=== PATIENT | male | born 1980 | race Caucasian/White ===

== ENCOUNTER 2020-03-26 09:52 | Emergency (ER) | payer OTHER ==
[~2020-03-26] VITALS: Ht 188 cm; Wt 124.5 kg
[2020-03-26 10:43] LABS: EOS # 0.4 (0.04-0.40); EOS % 4.5 % (0.0-4.0); HEMATOCRIT 38.1 % (42.0-52.0); LYMPH# 1.4 (1.50-4.00); MEAN CELL VOLUME 75 fl (78-100); MEAN CORPUSCULAR HEMOGLOBIN 22 pg (27-31); MEAN CORPUSCULAR HGB CONC 29 g/dL (33-37); MEAN PLATELET VOLUME 8.5 fl (7.4-10.4); MONO # 0.6 (0.20-0.80); NEU # 5.3 (1.40-6.50); PLATELET COUNT 384 K/mm3 (130-400); RED BLOOD COUNT 5.07 M/mm3 (4.20-5.60); WHITE BLOOD COUNT 7.8 K/mm3 (4.8-10.8)
[2020-03-26 10:45] LABS: URINE APPEARANCE CLEAR; URINE BILIRUBIN NEGATIVE (NEGATIVE); URINE BLOOD NEGATIVE (NEGATIVE); URINE COLOR YELLOW; URINE GLUCOSE NEGATIVE (NEGATIVE); URINE KETONE NEGATIVE (NEGATIVE); URINE LEUKOCYTE ESTERASE NEGATIVE (NEGATIVE); URINE NITRATE NEGATIVE (NEGATIVE); URINE PROTEIN(semi-quant) NEGATIVE (NEGATIVE); URINE UROBILINOGEN NORMAL (NORMAL); URINE WBC 0 /hpf (0-3)
[2020-03-26 10:51] LABS: ALBUMIN 4.2 g/dL (3.5-5.0); POTASSIUM 4.2 mmol/L (3.5-5.1)
[2020-03-26 10:52] LABS: SODIUM 141 mmol/L (136-145)
[2020-03-26 10:53] LABS: CALCIUM 8.7 mg/dL (8.3-10.5)
[2020-03-26 10:54] LABS: GLUCOSE 89 mg/dL (75-110); TOTAL PROTEIN 6.7 g/dL (6.4-8.3)
[2020-03-26 10:55] LABS: CARBON DIOXIDE 22 mmol/L (22-29)
[2020-03-26 10:56] LABS: TOTAL BILIRUBIN 0.2 mg/dL (0.2-1.2)
[2020-03-26 10:59] LABS: AST-SGOT 21 U/L (5-34)
[2020-03-26 11:00] LABS: ALT/SGPT 39 U/L (0-55)
[2020-03-26 11:03] LABS: D-DIMER 0.52 mg/L FEU (0.15-0.50)
[2020-03-26 11:10] LABS: TROPONIN-I < 0.03 ng/mL (<0.030)
[2020-03-26] MEDS ORDERED: PREDNISONE20 M1 PO ×3 (15:11→16:04)
[2020-03-26 15:50] VITALS: BP 121/54
[2020-03-28] MEDS ORDERED: CLONAZEPAM2 MG PO (02:52)
[2020-03-28] MEDS ORDERED: ESCITALOPRAM20 MG PO (02:54)
[2020-03-28] MEDS ORDERED: PROAIR HFA0.09 MG/AC IH (02:56)
[2020-03-28] MEDS ORDERED: REMERON15 MG PO (02:57)
[2020-03-28] MEDS ORDERED: ROXICODONE 55 MG/TAB PO (02:59)
[2020-03-28] MEDS ORDERED: ONDANSETRON ODT8 MG PO (06:28)
== END 2020-03-26 15:51 | disposition home or self-care (01) ==
LOC: ED 09:52
PROVIDERS: Nurse Practitioner Primary Care
DX: R09.1 Pleurisy (principal); Z20.828 Contact with and (suspected) exposure to other viral communicable diseases
CPT/HCPCS: J1170; J1200; J1885; J2270; J2405; J2550; J2930; J7030; Q9967

== ENCOUNTER 2020-04-01 01:14 | Emergency (ER) | payer OTHER ==
[~2020-04-01 01:14] MED LIST: CLONAZEPAM2 MG PO; ESCITALOPRAM20 MG PO; ONDANSETRON ODT8 MG PO; PREDNISONE20 M1 PO; PROAIR HFA0.09 MG/AC IH; REMERON15 MG PO; ROXICODONE 55 MG/TAB PO
[2020-04-01 01:20] VITALS: BP 151/91
[2020-04-01] MEDS ORDERED: PROMETHEGAN25 MG RC (01:26)
[2020-04-01 02:04] LABS: URINE APPEARANCE CLEAR; URINE BILIRUBIN NEGATIVE (NEGATIVE); URINE BLOOD NEGATIVE (NEGATIVE); URINE COLOR YELLOW; URINE GLUCOSE NEGATIVE (NEGATIVE); URINE KETONE NEGATIVE (NEGATIVE); URINE LEUKOCYTE ESTERASE NEGATIVE (NEGATIVE); URINE MUCUS PRESENT (NOT PRESENT); URINE NITRATE NEGATIVE (NEGATIVE); URINE PROTEIN(semi-quant) NEGATIVE (NEGATIVE); URINE UROBILINOGEN NORMAL (NORMAL); URINE WBC 0-1 /hpf (0-3)
[2020-04-01 02:22] LABS: EOS # 0.4 (0.04-0.40); EOS % 4.9 % (0.0-4.0); HEMATOCRIT 37.2 % (42.0-52.0); HEMOGLOBIN 11.1 g/dL (13.5-18.0); LYMPH# 1.7 (1.50-4.00); MEAN CELL VOLUME 73 fl (78-100); MEAN CORPUSCULAR HEMOGLOBIN 22 pg (27-31); MEAN CORPUSCULAR HGB CONC 30 g/dL (33-37); MEAN PLATELET VOLUME 8.4 fl (7.4-10.4); MONO # 0.6 (0.20-0.80); NEU # 4.4 (1.40-6.50); PLATELET COUNT 417 K/mm3 (130-400); RED BLOOD COUNT 5.08 M/mm3 (4.20-5.60); RED CELL DISTRIBUTION WIDTH 17.8 % (11.5-14.5); WHITE BLOOD COUNT 7.2 K/mm3 (4.8-10.8)
[2020-04-01 02:28] LABS: POTASSIUM 3.8 mmol/L (3.5-5.1); SODIUM 141 mmol/L (136-145)
[2020-04-01 02:29] LABS: CALCIUM 8.4 mg/dL (8.3-10.5)
[2020-04-01 02:30] LABS: GLUCOSE 119 mg/dL (75-110); TOTAL PROTEIN 6.2 g/dL (6.4-8.3)
[2020-04-01 02:31] LABS: CARBON DIOXIDE 22 mmol/L (22-29)
[2020-04-01 02:32] LABS: TOTAL BILIRUBIN 0.2 mg/dL (0.2-1.2)
[2020-04-01 02:33] LABS: ALCOHOL IN-HOUSE < 10 mg/dL (<10)
[2020-04-01 02:35] LABS: AST-SGOT 14 U/L (5-34)
[2020-04-01 02:37] LABS: ALT/SGPT 25 U/L (0-55)
== END 2020-04-01 04:34 | disposition home or self-care (01) ==
LOC: ED 01:14
PROVIDERS: Physician Assistant
DX: G43.909 Migraine, unspecified, not intractable, without status migrainosus (principal); G47.00 Insomnia, unspecified; Z88.6 Allergy status to analgesic agent; Z88.8 Allergy status to other drugs, medicaments and biological substances
CPT/HCPCS: J1200; J1885; J2405; J3360; J7030

== ENCOUNTER 2020-04-28 03:30 | Emergency (ER) | payer OTHER ==
[~2020-04-28] VITALS: Ht 188 cm; Wt 132.1 kg
[~2020-04-28 03:30] MED LIST changes: +PROMETHEGAN25 MG RC
[2020-04-28] MEDS ORDERED: NORCO 325 MG-51 TA1 PO (03:41)
[2020-04-28 05:00] VITALS: BP 114/80
[2020-04-28 05:09] LABS: EOS # 0.1 (0.04-0.40); EOS % 1.8 % (0.0-4.0); HEMATOCRIT 37.9 % (42.0-52.0); HEMOGLOBIN 11.2 g/dL (13.5-18.0); MEAN CELL VOLUME 74 fl (78-100); MEAN CORPUSCULAR HEMOGLOBIN 22 pg (27-31); MEAN CORPUSCULAR HGB CONC 30 g/dL (33-37); MEAN PLATELET VOLUME 8.3 fl (7.4-10.4); MONO # 0.4 (0.20-0.80); NEU # 2.4 (1.40-6.50); PLATELET COUNT 343 K/mm3 (130-400); RED BLOOD COUNT 5.14 M/mm3 (4.20-5.60); RED CELL DISTRIBUTION WIDTH 18.5 % (11.5-14.5); WHITE BLOOD COUNT 3.8 K/mm3 (4.8-10.8)
[2020-04-28 05:15] LABS: ALBUMIN 3.9 g/dL (3.5-5.0)
[2020-04-28 05:16] LABS: POTASSIUM 3.9 mmol/L (3.5-5.1)
[2020-04-28 05:17] LABS: CALCIUM 8.3 mg/dL (8.3-10.5)
[2020-04-28 05:18] LABS: TOTAL PROTEIN 6.4 g/dL (6.4-8.3)
[2020-04-28 05:20] LABS: TOTAL BILIRUBIN 0.2 mg/dL (0.2-1.2)
[2020-04-28 05:28] LABS: D-DIMER 0.48 mg/L FEU (0.15-0.50)
[2020-04-28 06:41] LABS: ERYTHROCYTE SEDIMENTATION RATE 17 mm/hr (0-15)
== END 2020-04-28 06:47 | disposition left against medical advice (07) ==
LOC: ED 03:30
PROVIDERS: Nurse Practitioner Family
DX: R06.02 Shortness of breath (principal); U07.1 COVID-19; R51.9 Headache, unspecified; R53.81 Other malaise; E86.0 Dehydration; R50.9 Fever, unspecified; F41.9 Anxiety disorder, unspecified; F43.10 Post-traumatic stress disorder, unspecified; Z90.49 Acquired absence of other specified parts of digestive tract; Z88.8 Allergy status to other drugs, medicaments and biological substances; Z88.6 Allergy status to analgesic agent; Z79.1 Long term (current) use of non-steroidal anti-inflammatories (NSAID)
CPT/HCPCS: J1200; J1885; J2405; J2550; J7030